=== PATIENT | female | born 1980 | race Caucasian/White ===

== ENCOUNTER 2024-09-27 17:09 | Emergency (ER) | payer MEDICAID, SELFPAY ==
[2024-09-27 17:16] VITALS: BP 156/94; PULSE 81; TEMP 36.7; O2SAT 98; BMI 28.2
--- NOTE | 2024-09-27 17:27 | PC.NURSE ---
pt states broken tooth is puncturing tongue
--- NOTE | 2024-09-27 17:46 | ED.DENTAL1 ---
HPI - Dental/Oral General Chief complaint: Dental/Oral Stated complaint: OTHER Time Seen by Provider: 09/27/24 17:30 Source: patient Mode of arrival: walk-in Limitations: no limitations History of Present Illness HPI Narrative: The patient presented to us after she broke her tooth 3 weeks ago while eating some Tums the patient mentioned that since then she has been having irritation to her left tongue and that what brought her here to the ER. She denies any fall injury or any other complaints she also denies any difficulty swallowing but she mentioned that the pain from the irritation of the broken tooth is causing her distress He had an appointment with the dentist but apparently it got canceled and she thought she will come to the ER for evaluation Related Data Allergies Allergy/AdvReac Type Severity Reaction Status Date / Time fluconazole (From Diflucan) Allergy Severe Anaphylaxis Verified 09/27/24 17:16 Penicillins Allergy Severe Anaphylaxis Verified 09/27/24 17:16 Review of Systems ROS Status of ROS 10 or more systems reviewed and unremarkable except as noted in history and below PFSH PFSH Social History Little interest or pleasure in doing things: not at all Feeling down, depressed, or hopeless: not at all Exam Narrative Exam Narrative: Dental exam: Patient will have a poor dental hygiene there is a decayed and broken tooth #18 on the left lower mandible and the patient have flling in it The patient also have some mild irritation on the lateral aspect of the tongue mostly from the irritation Airway is not compromised and there is no other findings Constitutional Vital Signs, click to edit/add: Last Vital Signs Temp 98.1 F 09/27/24 17:16 Pulse 81 09/27/24 17:16 Resp 22 H 09/27/24 17:16 BP 156/94 H 09/27/24 17:16 Pulse Ox 98 09/27/24 17:16 O2 Del Method Room Air 09/27/24 17:16 Course Vital Signs Vital signs: Vital Signs Temperature 98.1 F 09/27/24 17:16 Pulse Rate 81 09/27/24 17:16 Respiratory Rate 22 H 09/27/24 17:16 Blood Pressure 156/94 H 09/27/24 17:16 Pulse Oximetry 98 09/27/24 17:16 Oxygen Delivery Method Room Air 09/27/24 17:16 Temperature 98.1 F 09/27/24 17:16 Pulse Rate 81 09/27/24 17:16 Respiratory Rate 22 H 09/27/24 17:16 Blood Pressure 156/94 H 09/27/24 17:16 Pulse Oximetry 98 09/27/24 17:16 Oxygen Delivery Method Room Air 09/27/24 17:16 MDM - Dental/Oral MDM Narrative Medical decision making narrative: The patient tongue irritation not causing her any significant swelling causing any distress at the moment but the pain from the irritation of the tongue when touching the broken tooth is causing her pain I did explain to the patient that right now we can do a local mucous membrane numbness with a dental anesthesia but she have to be cautious that she does not hurt her tongue more The patient referred to the dentist as outpatient Discharge Plan Discharge Chief Complaint: Dental/Oral Clinical Impression: Fracture of tooth Patient Disposition: Home, Self-Care Time of Disposition Decision: 17:39 Condition: Good Print Language: Romanian Instructions: Toothache (ED), Tooth Extraction (DC) Referrals: GLORIA WILLIAM [Primary Care Provider] - 1 week Discharge Date/Time: 09/27/24 18:13
[2024-09-27] MEDS: BENZOCAINE 30 ML, lidocaine HCL 15 ML MM (18:10)
== END 2024-09-27 18:13 | disposition home or self-care (01) ==
PROVIDERS: Emergency Provider Emergency Medicine; PCP Family Medicine
DX: S02.5XXA Fracture of tooth (traumatic), initial encounter for closed fracture (principal); X58.XXXA Exposure to other specified factors, initial encounter
CPT/HCPCS: 99284

== ENCOUNTER 2025-04-23 20:49 | Emergency (ER) | payer MEDICAID, SELFPAY ==
[2025-04-23 20:54] VITALS: BP 127/89; PULSE 94; TEMP 37; O2SAT 98; BMI 38.6
--- OUTSIDE RECORDS SUMMARY | 2025-04-23 21:08 | XMS_ITS | CCD ---
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 MP #### [facility] [address] [place] [address] Eugenio Oanh Chloride [Moles/Vol] 105 mmol/L Normal 98-107 [facility] Comment on above: Performed By: #### C MP #### [facility] [address] [place], [place] [id number] Eugenio Oanh CO2 [Moles/Vol] 27.0 mmol/L Normal 22.0-30.0 [facility] Comment on above: Performed By: #### C MP #### [facility] [address] [place], [place] [id number] Eugenio Oanh Creatinine [Mass/Vol] 0.83 mg/dL Normal 0.52-1.04 [facility] Comment on above: Performed By: #### C MP #### [facility] [address] [place], [place] [address] Eugenio Oanh EGFR-AF KITTITIAN >60 Normal >=60 [facility] Comment on above: Performed By: #### C MP #### [facility] [address] [id number] Eugenio Oanh EGFR-NON AF KITTITIAN >60 Normal >=60 [facility] Comment on above: Performed By: #### C MP #### [facility] [address] [id number] Eugenio Oanh Globulin (S) [Mass/Vol] 2.9 g/dL Normal [facility] Comment on above: Performed By: #### C MP #### [facility] [address] [place], [place] [id number] Eugenio Oanh Glucose [Mass/Vol] 83 mg/dL Normal 74-106 [facility] Comment on above: Performed By: #### C MP #### [facility] [address] [place] [address] Eugenio Oanh Potassium [Moles/Vol] 3.7 mmol/L Normal 3.4-5.0 [facility] Comment on above: Performed By: #### C MP #### [facility] [address] [place], [place] [id number] Eugenio Oanh Protein [Mass/Vol] 6.4 g/dL Normal 6.1-8.2 [facility] Comment on above: Performed By: #### C MP #### [facility] [address] [place] [address] Eugenio Oanh Sodium [Moles/Vol] 139 mmol/L Normal 137-145 [facility] Comment on above: Performed By: #### C MP #### [facility] [address] [place], [place] [id number] Eugenio Oanh Urea nitrogen [Mass/Vol] 12.0 mg/dL Normal 7.0-17.0 [facility] Comment on above: Performed By: #### C MP #### [facility] [address] [place], [place] [id number] Eugenio Oanh Urea nitrogen/Creatinine [Mass ratio] 14.5 mg/mg Normal [facility] Comment on above: Performed By: #### C MP #### [facility] [address] [id number] Eugenio Oanh AMYLASEon 12-10-2020 Amylase [Catalytic activity/Vol] 44 U/L Normal 31-110 [facility] Comment on above: Performed By: #### L IPA, JACQUES, CMP ####[facility] [address] [id number] Oanh CBC AUTO DIFFon 12-10-2020 BASO # 0.1 103/ul Normal 0.0-0.1 [facility] Comment on above: Performed By: #### C BC #### [facility] [address] [address] Eugeniodylon Hugo Basophils/100 WBC (Bld) 0.5 % Normal 0.2-2.0 [facility] Comment on above: Performed By: #### C BC #### [facility] [address] [place] [address] Eugenio Oanh EO # 0.2 103/ul Normal 0.0-0.7 [facility] Comment on above: Performed By: #### C BC #### [facility] [address] [place] [address] Eugenio Hugo Eosinophils/100 WBC (Bld) 1.6 % Normal 0.9-7.0 [facility] Comment on above: Performed By: #### C BC #### [facility] [address] [place] [address] Eugenio Oanh Erythrocyte distribution width (RBC) [Ratio] 12.8 % Normal 11.0-15.0 [facility] Comment on above: Performed By: #### C BC #### [facility] [address] [place] [address] Eugenio Oanh Hematocrit (Bld) [Volume fraction] 43.5 % Normal 36.0-48.0 [facility] Comment on above: Performed By: #### C BC #### [facility] [address] [place], [place] [id number] Eugenio Oanh Hemoglobin (Bld) [Mass/Vol] 14.2 g/dL Normal 12.0-16.0 [facility] Comment on above: Performed By: #### C BC #### [facility] [address] [place] [address] Eugeniodylon Hugo IG # 0.03 10e3/ul Normal 0.00-0.03 [facility] Comment on above: Performed By: #### C BC #### [facility] [address] [place] [address] Eugenio Oanh IG % 0.3 % Normal 0.0-0.5 [facility] Comment on above: Performed By: #### C BC #### [facility] [address] [place] [address] Eugenio Oanh LYMPH # 3.0 103/ul Normal 1.2-3.8 [facility] Comment on above: Performed By: #### C BC #### [facility] [address] [place] [address] Eugenio Hugo Lymphocytes/100 WBC (Bld) 27.1 % Normal 20.5-60.0 [facility] Comment on above: Performed By: #### C BC #### [facility] [address] [place] [address] Eugeniodylon Hugo MANUAL DIFF REQ NO Normal [facility] Comment on above: Performed By: #### C BC #### [facility] [address] [place] [address] Eugenio Oanh MCH (RBC) [Entitic mass] 31.1 pg Normal 26.7-34.0 [facility] Comment on above: Performed By: #### C BC #### [facility] [address] [place] [address] Eugenio Oanh MCHC (RBC) [Mass/Vol] 32.6 g/dL Normal 29.9-35.2 [facility] Comment on above: Performed By: #### C BC #### [facility] [address] [place] [address] Eugenio Oanh MCV (RBC) [Entitic vol] 95.2 fL Normal 81.0-99.0 [facility] Comment on above: Performed By: #### C BC #### [facility] [address] [id number] Eugeniodylon Carrionen MONO # 0.6 103/ul Normal 0.3-0.8 [facility] Comment on above: Performed By: #### C BC #### [facility] [address] [id number] Eugeino Oanh Monocytes/100 WBC (Bld) 5.5 % Normal 1.7-12.0 [facility] Comment on above: Performed By: #### C BC #### [facility] [address] [address] Eugenio Oanh NEUT # 7.2 103/ul Critically high 1.4-6.5 [facility] Comment on above: Performed By: #### C BC #### [facility] [address] [place] [address] Eugenio Oanh Neutrophils/100 WBC (Bld) 65.0 % Normal 43.0-75.0 [facility] Comment on above: Performed By: #### C BC #### [facility] [address] [place], [place] [id number] Eugeniodylon Carrionen Platelet mean volume (Bld) [Entitic vol] 9.3 fL Critically low 9.5-13.5 [facility] Comment on above: Performed By: #### C BC #### [facility] [address] [place], [place] [address] Eugenio Oanh PLT 305 103/ul Normal 150-450 [facility] Comment on above: Performed By: #### C BC #### [facility] [address] [place], [place] [address] Eugenio Oanh RBC 4.57 106/ul Normal 4.20-5.40 [facility] Comment on above: Performed By: #### C BC #### [facility] [address] [place], [place] [address] Eugenio Oanh WBC 11.1 103/ul Critically high 4.0-11.0 [facility] Comment on above: Performed By: #### C BC #### [facility] [address] ABD/PELVIS WO CONon 12-10 CT ABD/PELVIS WO CON EXAMINATION: CT ABD/PELVIS WO CON HISTORY: Right-sided abdominal pain. COMPARISON: CT abdomen and pelvis examination dated 11/22/2015. TECHNIQUE: CT examination of the abdomen and pelvis without IV contrast. Coronal and sagittal reformations were performed. Dose reduction techniques were achieved by using automated exposure control and/or adjustment of mA and/or kV according to patient size and/or use of iterative reconstruction technique. FINDINGS: The visualized portions of the lung bases are clear. Abdomen: Please note that the sensitivity for detection of focal lesions or vascular disease is markedly reduced without intravenous contrast. The liver and spleen are unremarkable. There is no intra or extrahepatic biliary duct dilatation. The gallbladder is unremarkable. The pancreas, adrenal glands, kidneys, and bowel loops, including the appendix, are unremarkable. There is no mesenteric or retroperitoneal lymphadenopathy. There is a small fat-containing umbilical hernia. Pelvis: The bladder is decompressed and not well evaluated. The rectum is unremarkable. There is no iliac or inguinal lymphadenopathy. The patient is status post hysterectomy. The ovaries appear within normal limits by CT. Bone windows show no aggressive osseous lesions. There is a left L5 pars defect without anterolisthesis. IMPRESSION: 1. No specific etiology identified to explain the patient's right-sided abdominal pain. 2. Normal appendix. 3. Status post hysterectomy. 4. Left L5 pars defects without anterolisthesis. Electronically authenticated by: Rober SANCHEZ Date: 2020-12-10 00:31 Normal [facility] ER URINE PROFILEon Bilirubin Ql (U) Negative Normal NEGATIVE [facility] Comment on above: Performed By: #### JOSE RAUL SHERIDAN #### [facility] [address] [address] Eugenio Oanh Clarity (U) CLEAR Normal CLEAR [facility] Comment on above: Performed By: #### JOSE RAUL SHERIDAN #### [facility] [address] [address] Eugenio Oanh Color (U) YELLOW Normal YELLOW [facility] Comment on above: Performed By: #### JOSE RAUL SHERIDAN #### [facility] [address] [address] Eugenio Oanh ERUAHD A micrscopic examination will be performed if indicated. Normal [facility] Comment on above: Performed By: #### JOSE RAUL SHERIADN #### [facility] [address] [place] [address] Eugenio Oanh Glucose Ql (U) Negative Normal NEGATIVE [facility] Comment on above: Performed By: #### JOSE RAUL SHERIDAN #### [facility] [address] [address] Eugenio Oanh Hemoglobin Ql (U) TRACE-INTACT Abnormal NEGATIVE [facility] Comment on above: Performed By: #### JOSE RAUL SHERIDAN #### [facility] [address] [place] [address] Eugenio Oanh Ketones Ql (U) Negative Normal NEGATIVE [facility] Comment on above: Performed By: #### JOSE RAUL SHERIDAN #### [facility] [address] [place] [address] Eugenio Oanh LEUKOCYTES Negative Normal NEGATIVE [facility] Comment on above: Performed By: #### JOSE RAUL SHERIDAN #### [facility] [address] [place] [address] Eugenio Oanh Nitrite Ql (U) Negative Normal NEGATIVE [facility] Comment on above: Performed By: #### JOSE RAUL SHERIDAN #### [facility] [address] [place] [address] Eugenio Oanh pH (U) 6.5 [pH] Normal 5-9 [facility] Comment on above: Performed By: #### JOSE RAUL SHERIDAN #### [facility] [address] [place] [address] Eugenio Oanh SPEC GRAVITY 1.025 Normal 1.005-<=1.025 [facility] Comment on above: Performed By: #### JOSE RAUL SHERIDAN #### [facility] [address] [place] [address] Eugenio Oanh UA PROTEIN Negative Normal NEGATIVE/ TRACE [facility] Comment on above: Performed By: #### JOSE RAUL SHERIDAN #### [facility] [address] [place], [place] [address] Eugenio Hugo UR MICRO IND INDICATED Normal [facility] Comment on above: Performed By: #### JOSE RAUL SHERIDAN #### [facility] [address] [place], [place] [address] Eugenio Hugo Urobilinogen Qn (U) 1.0 {Francesca'U}/dL Normal 0.2 - 1. 0 [facility] Comment on above: Performed By: #### JOSE RAUL SHERIDAN #### [facility] [address] [id number] Eugenio Hugo LIPASEon 12-10-2020 Lipase [Catalytic activity/Vol] 129.0 U/L Normal 23.0-300.0 [facility] Comment on above: Performed By: #### L JACQUES CHAHAL, CMP ####[facility] [address] [address]Eugenio Hugo PROF 14(COMP METB)on 021 Albumin [Mass/Vol] 3.9 g/dL Normal 3.5-5.0 [facility] Comment on above: Performed By: #### L JACQUES CHAHAL, CMP ####[facility] [address] [id number] Oanh Albumin/Globulin [Mass ratio] 1.3 {ratio} Normal [facility] Comment on above: Performed By: #### L JACQUES CHAHAL, CMP ####[facility] [address] [id number] Oanh ALP [Catalytic activity/Vol] 74 U/L Normal 38-126 [facility] Comment on above: Performed By: #### L JACQUES CHAHAL, CMP ####[facility] [address] [address]Gerken Oanh ALT [Catalytic activity/Vol] 27 U/L Normal 9-52 [facility] Comment on above: Performed By: #### L JACQUES CHAHAL, CMP ####[facility] [address] [id number] Oanh Anion gap [Moles/Vol] 13.1 mmol/L Normal [facility] Comment on above: Performed By: #### L JACQUES CHAHAL, CMP ####[facility] [address] [place], [place] [id number] Oanh AST [Catalytic activity/Vol] 14 U/L Normal 14-36 [facility] Comment on above: Performed By: #### L JACQUES CHAHAL, CMP ####[facility] [address] [place], [place] [id number] Oanh Bilirubin [Mass/Vol] 0.3 mg/dL Normal 0.2-1.3 [facility] Comment on above: Performed By: #### L JACQUES CHAHAL, CMP ####[facility] [address] [place], [place] [address]Gerken Oanh Calcium [Mass/Vol] 9.1 mg/dL Normal 8.4-10.2 [facility] Comment on above: Performed By: #### L JACQUES CHAHAL, CMP ####[facility] [address] [place], [place] [address]Gerken Oanh Chloride [Moles/Vol] 104 mmol/L Normal 98-107 [facility] Comment on above: Performed By: #### L JACQUES CHAHAL, CMP ####[facility] [address] [place], [place] [address]Gerken Oanh CO2 [Moles/Vol] 28.4 mmol/L Normal 22.0-30.0 [facility] Comment on above: Performed By: #### L JACQUES CHAHAL, CMP ####[facility] [address] [place], [place] [id number] Oanh Creatinine [Mass/Vol] 1.10 mg/dL Critically high 0.52-1.04 [facility] Comment on above: Performed By: #### L JACQUES CHAHAL, CMP ####[facility] [address] [place], [place] [id number] Oanh EGFR-AF KITTITIAN >60 Normal >=60 [facility] Comment on above: Performed By: #### L JACQUES CHAHAL, CMP ####[facility] [address] [place], [place] [address]Vwargb Oanh EGFR-NON AF KITTITIAN 55 mL/min/1.73m2 Critically low >=60 [facility] Comment on above: Performed By: #### L JACQUES CHAHAL, CMP ####[facility] [address] [place], [place] [address]Wfcgme Oanh Globulin (S) [Mass/Vol] 3.1 g/dL Normal [facility] Comment on above: Performed By: #### L JACQUES CHAHAL, CMP ####[facility] [address] [id number] Oanh Glucose [Mass/Vol] 97 mg/dL Normal 74-106 [facility] Comment on above: Performed By: #### L JACQUES CHAHAL, CMP ####[facility] [address] [place], [place] [id number] Oanh Potassium [Moles/Vol] 3.5 mmol/L Normal 3.4-5.0 [facility] Comment on above: Performed By: #### L JACQUES CHAHAL, CMP ####[facility] [address] [place] [id number] Oanh Protein [Mass/Vol] 7.0 g/dL Normal 6.1-8.2 [facility] Comment on above: Performed By: #### L JACQUES CHAHAL, CMP ####[facility] [address] [place], [place] [id number] Oanh Sodium [Moles/Vol] 142 mmol/L Normal 137-145 [facility] Comment on above: Performed By: #### L JACQUES CHAHAL, CMP ####[facility] [address] [place], [place] [address]Lesebm Oanh Urea nitrogen [Mass/Vol] 15.0 mg/dL Normal 7.0-17.0 [facility] Comment on above: Performed By: #### L JACQUES CHAHAL, CMP ####[facility] [address] [place] [address]Kcyusj Oanh Urea nitrogen/Creatinine [Mass ratio] 13.6 mg/mg Normal [facility] Comment on above: Performed By: #### L JACQUES CHAHAL, CMP ####[facility] [address] [place], [place] [address]Tduzjw Oanh URINE MICROSCOPIC ONLYon BACTERIA TRACE Abnormal NONE SEEN [facility] Comment on above: Performed By: #### JOSE RAUL SHERIDAN #### [facility] [address] [id number] Eugenio Oanh Bacteria identified Cx Nom (U) NOT INDICATED Normal [facility] Comment on above: Performed By: #### JOSE RAUL SHERIDAN #### [facility] [address] [address] Eugenio Oanh CAST NONE SEEN Normal NONE SEEN [facility] Comment on above: Performed By: #### JOSE RAUL SHERIDAN #### [facility] [address] [address] Eugenio Oanh Crystals LM Nom (Urine sed) NONE SEEN Normal NONE SEEN [facility] Comment on above: Performed By: #### JOSE RAUL SHERIDAN #### [facility] [address] [place] [address] Eugenio Oanh Epithelial cells LM Ql (Urine sed) MODERATE Abnormal NONE SEEN /RARE [facility] Comment on above: Performed By: #### JOSE RAUL SHERIDAN #### [facility] [address] [place] [address] Eugenio Oanh MUCOUS NONE SEEN Normal NONE SEEN [facility] Comment on above: Performed By: #### JOSE RAUL SHERIDAN #### [facility] [address] [place] [address] Eugenio Oanh RBC 0-2 Normal 0-2 [facility] Comment on above: Performed By: #### JOSE RAUL SHERIDAN #### [facility] [address] [place], [place] [id number] Eugenio Oanh WBC 0-2 Abnormal NONE SEEN [facility] Comment on above: Performed By: #### JOSE RAUL SHERIDAN #### [facility] [address] [place], [place] [id number] Eugenio Oanh Encounters Encounter Date Encounter Type Care Provider Facility Start: 08-30-2024 End: 08-30-2024 Emergency department patient visit GLORIA Hatfield [facility] Start: 08-20-2024 End: 08-20-2024 Emergency department patient visit GLORIA Hatfield [facility] Start: 05-14-2024 End: 05-14-2024 Emergency department patient visit GLORIA Hatfield [facility] Start: 04-03-2024 End: 04-03-2024 [facility]: 04-02-[facility]24 End: 04-02-2024 Emergency department patient visit GLORIA G [facility] Start: 03-17-2024 End: 03-18-2024 Emergency department patient visit TONY DEL ROSARIO [facility] Start: 01-09-2024 End: 01-10-2024 Emergency department patient visit HAVEN SEE [facility] Start: 11-28-2021 End: 11-28-[address] GLORIA WILLIAM Facility:[facility] Start: 06-02-2021 End: 06-02-[address] GLORIA WILLIAM Facility:[facility] Start: 05-27-2021 End: 05-27-[address] GLORIA WILLIAM Facility:[facility] Start: 12-10-2020 End: 12-10-[address] LD BOSE Facility:[facility] Payers Date Payer Category Payer Unknown [id number] 2.16.84 [id number] 1981 Unknown [id number] 2.16.84 [id number] 1981 Unknown [id number] 2.16.84 [id number] 1981 Unknown [id number] 2.16.84 [id number] 1981 Unknown [id number] 2.16.8 40.1.064721.3.579.2.1286 1981 Unknown [id number] 2.16.8 40.1.518929.3.579.2.1285 1981 Unknown [id number] 2.16.8 40.1.907617.3.579.2.1285 1981 Unknown [id number] 2.16.8 40.1.461688.3.579.2.1285 1981 Unknown [id number] 2.16.8 40.1.087464.3.579.2.1285 1981 Unknown [id number] 2.16.8 40.1.264459.3.579.2.1285 1981 Unknown [id number] 2.16.8 40.1.110000.3.579.2.1285 1981 Unknown [id number] 2.16.8 40.1.628875.3.579.2.1285 1981 Unknown [id number] 2.16.8 40.1.898843.3.579.2.1285 1981 Unknown [id number] 2.16.8 40.1.756240.3.579.2.1285 1981 Unknown [id number] 2.16.8 40.1.674074.3.579.2.1285 1981 Unknown [id number] 2.16.8 40.1.882600.3.579.2.[facility]ly [facility] 1958 Unknown [id number] Unknown [id number] Clinical Note 01-09-2024 Note Date & Type Note Facility 01-09-2024 Note XR KNEE LT 3 VWS Procedure: Left knee radiographs performed Number of views:3 History:Pain Comparison:None Findings: There is no fracture, dislocation, effusion, or destructive lesion. Impression: No acute findings. Finalized by Jeannette Parsons DO on 01/09/2024 2:50 PM [facility] Summary Purpose Family History No Family History Records FoundNo Family History Records Found Advance Directives No Advanced Directives Records FoundNo Advanced Directives Records Found Additional Source Comments INFORMATION SOURCE (unrecogn ized section and content) DATE CREATED AUTHOR 11/30/2021 [facility] DATE CREATED AUTHOR AUTHOR'S ABBIE ATKALLI 09/01/2024 [facility] FOR RECORDS PERTAINING TO PATIENTS WHO ARE OR HAVE BEEN ENROLLED IN A CHEMICAL DEPENDENCY/SUBSTANCEABUSE PROGRAM, SOME INFORMATION MAY BE OMITTED. This clinical summary was aggregated from multiple sources. Caution should be exercised in using it in the provision of clinical care. This summary normalizes information from multiple sources, and as a consequence, information in this document may materially change the coding, format and clinical context of patient data. In addition, data may be omitted in some cases. CLINICAL DECISIONS SHOULD BE BASED ON THE PRIMARY CLINICAL RECORDS. [employer] provides no warranty or guarantee of the accuracy or completeness of information in this document.
--- NOTE | 2025-04-23 21:54 | ED.GENADUL1 ---
HPI HPI - General Adult General Stated complaint: BACK PAIN Time Seen by Provider: 04/23/25 21:28 Source: patient Mode of arrival: walk-in Limitations: no limitations History of Present Illness HPI narrative: cc - acute exacerbation of chronic neck and back pain Pt presents with pain in the low back and pain in the left lateral neck. Prior history of pars defect and L5 fracture along with carrying stress in my neck . No recent injury or fall or other activity to exacerbate her pain. She told us that she has gained a lot of weight inn the last 4 months and believes that has put pressure on her low back. She also notes that her left lower eg is swollen - and the same thing happened to me last time that my back was flared up. No bowel or bladder dysfunction. No fever or chills. No weakness or paralysis to either lower extremity. No relief with OTC meds and she could not get into her PCP's office when she called earlier today. Related Data Home Medications ?Medication ?Instructions ?Recorded ?Confirmed buspirone 10 mg tablet mg 04/23/25 cariprazine 1.5 mg capsule mg 04/23/25 (Vraylar) prazosin 1 mg capsule mg 04/23/25 Previous Rx's ?Medication ?Instructions ?Recorded methocarbamol 750 mg tablet 750 mg PO Q6H PRN pain #30 tabs 04/23/25 methylprednisolone 4 mg tablets in 4 mg PO DAILY #21 ea 04/23/25 a dose pack (Medrol (Eduardo)) nabumetone 750 mg tablet 750 mg PO BID PRN pain #14 tabs 04/23/25 Allergies Allergy/AdvReac Type Severity Reaction Status Date / Time fluconazole (From Diflucan) Allergy Severe Anaphylaxis Verified 04/23/25 21:05 Penicillins Allergy Severe Anaphylaxis Verified 04/23/25 21:05 amoxicillin (From Augmentin) Allergy Unknown Unknown Verified 04/23/25 21:05 clavulanic acid (From Allergy Unknown Unknown Verified 04/23/25 21:05 Augmentin) PFSH PFSH Social History Little interest or pleasure in doing things: not at all Feeling down, depressed, or hopeless: not at all Exam Narrative Exam Narrative: General: Alert, no acute distress, patient resting comfortably Skin: warm, intact, no pallor noted Head: Normocephalic, atraumatic Neck/Thyoid: Left paracervical soft tissue tenderness radiating from the inferior aspect of the left skull down to the middle of the left superior trapezius. No palpable mass. Eye: Normal conjunctiva Respiratory: No acute distress Back: inspection of the back shows no obvious deformity, no swelling, no ecchymosis, contusion, abrasion, swelling, erythema, fluctuance or induration. Tenderness noted to the left paralumbar soft tissue including left buttock as well as the midline lumbar and sacral vertebral areas. No left scapular tenderness. No tenderness to the right paralumbar and right buttock areas. Straight leg raise on left is negative. Straight leg raise on right is positive. No CVA tenderness noted bilaterally. Musculoskeletal: No deformity noted to bilateral lower extremities. no cyanosis or mottling noted. normal pulses at DP and PT 2+ bilaterally and symmetrically. Normal 5/5 strength at ankles with dorsiflexion and plantar flexion. Patient is able to ambulate. Normal sensation noted to both lower extremities. The left ankle is slightly swollen compared to the right ankle. No pitting edema noted. No tenderness to palpation. Neurological: AAOx4, normal sensory and motor observed. L5-S1 reflexes intact symmetrically. DTR 2+ at patellar bilaterally. Psychiatric: Cooperative and interactive. Constitutional Vital Signs, click to edit/add: Last Vital Signs Temp 98.6 F 04/23/25 20:54 Pulse 94 H 04/23/25 20:54 Resp 18 04/23/25 20:54 BP 127/89 04/23/25 20:54 Pulse Ox 98 04/23/25 20:54 O2 Del Method Room Air 04/23/25 20:54 Course Vital Signs Vital signs: Vital Signs Temperature 98.6 F 04/23/25 20:54 Pulse Rate 94 H 04/23/25 20:54 Respiratory Rate 18 04/23/25 20:54 Blood Pressure 127/89 04/23/25 20:54 Pulse Oximetry 98 04/23/25 20:54 Oxygen Delivery Method Room Air 04/23/25 20:54 Temperature 98.6 F 04/23/25 20:54 Pulse Rate 94 H 04/23/25 20:54 Respiratory Rate 18 04/23/25 20:54 Blood Pressure 127/89 04/23/25 20:54 Pulse Oximetry 98 04/23/25 20:54 Oxygen Delivery Method Room Air 04/23/25 20:54 Medical Decision Making [facility] Narrative Medical decision making narrative: No recent fall, injury or trauma to necessitate imaging in this patient who has a long history of chronic neck and back pain which appears to be exacerbated by significant weight gain over the last 4 months. I do not see evidence of acute neurosurgical emergency, cauda equina syndrome, any other condition which requires emergent imaging or surgical intervention. Patient was ordered to receive IM Solu-Medrol, IM Toradol and oral Robaxin. She was discharged home with prescription for a Medrol Dosepak, Relafen and Robaxin to take at home. She can see her primary care physician for follow-up Discharge Plan Discharge Clinical Impression: Acute exacerbation of chronic low back pain, Low back pain, Acute cervical myofascial strain, Edema, peripheral Patient Disposition: Home, Self-Care Time of Disposition Decision: 22:00 Prescriptions / Home Meds: New nabumetone 750 mg tablet 750 mg PO BID PRN (Reason: pain) Qty: 14 0RF methocarbamol 750 mg tablet 750 mg PO Q6H PRN (Reason: pain) Qty: 30 0RF methylprednisolone [Medrol (Eduardo)] 4 mg tablets,dose pack 4 mg PO DAILY Qty: 21 0RF No Action prazosin 1 mg capsule buspirone 10 mg tablet Vraylar 1.5 mg capsule Print Language: Iranian Instructions: Chronic Pain (ED), Acute Low Back Pain (ED), Leg Edema (ED), Neck Pain (ED) Referrals: GLORIA WILLIAM [Primary Care Provider, Family Practice] - 1 week
[2025-04-23] MEDS: KETOROLAC TROMETHAMINE 60 MG/2 ML VIAL IM (22:18)
[2025-04-23] MEDS: METHYLPREDNISOLONE SOD SUCC PF 125 MG/2 ML VIAL IM (22:18)
[2025-04-23] MEDS: METHOCARBAMOL 500 MG TABLET 1000 MG PO (22:18)
== END 2025-04-23 22:55 | disposition home or self-care (01) ==
PROVIDERS: Emergency Provider Emergency Medicine; PCP Family Medicine
DX: M54.50 Low back pain, unspecified (principal); G89.29 Other chronic pain; R60.0 Localized edema; S16.1XXA Strain of muscle, fascia and tendon at neck level, initial encounter; X58.XXXA Exposure to other specified factors, initial encounter
CPT/HCPCS: 96372; 99284; J1885; J2919